=== PATIENT | female | born 1980 | race Two or more races ===

== ENCOUNTER 2017-02-09 15:14 | Emergency (ER) | payer SELFPAY ==
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
== END 2017-02-09 19:50 | disposition home or self-care (01) ==
LOC: CFTX 15:14 → CED 15:14 → CFTX 17:51
DX: S13.4XXA Sprain of ligaments of cervical spine, initial encounter (principal); S00.83XA Contusion of other part of head, initial encounter; W01.0XXA Fall on same level from slipping, tripping and stumbling without subsequent striking against object, initial encounter; Y92.009 Unspecified place in unspecified non-institutional (private) residence as the place of occurrence of the external cause
CPT/HCPCS: 70110; 72040; 84703; 99284